=== PATIENT | female | born 1985 | race African-American/Black ===

== ENCOUNTER → 2016-08-08 | Outpatient (CLI) | payer OTHER ==
[2015-11-03 10:00] VITALS: BP 110/80
[~2016-08-08] MED LIST: GADOBUTROL 7.5 MMOL/7.5 ML VIAL INT ART ONE; IBUP200T43 PO; IOHEXOL 300 MG/ML 50 ML VIAL. INT ART ONE; LIDOCAINE 1% Multi-Dose 20 ML VIAL. ID ONE
--- NOTE | 2016-08-08 16:13 | KCIC ---
PROCEDURE Lefthip injection using fluoroscopic guidance, prior to MR. HISTORY Hip pain. History of prior labral repair. TECHNIQUE The procedure was explained to the patient as were potential risks. All questions were answered. Informed written consent was obtained. The hip was prepped and draped in the usual sterile manner. Following administration of local anesthetic with 1% lidocaine , a 22-gauge spinal needle was advanced into the hip. Stylet was removed and following negative aspiration,15 cc of a solution of 5cc Omnipaque-300 contrast, 5 cc 1% lidocaine, 10 cc saline, and 0.1 cc gadolinium was injected without difficulty. The needle was removed. There was good hemostasis at the injection site. The patient left in stable condition without immediate complication. The patient was given postprocedural instructions, and instructed to contact us or the ER if there are any complications. COMPARISON None FINDINGS Single fluoroscopic image shows needle tip projected to the lateral femoral head/neck junction. Contrast material fills the joint space. 1 minutes 9 seconds fluoroscopic time used. One image. IMPRESSION Fluoroscopic guided left hip injection for MRI. Electronically signed by: Ganesh Riojas (Aug 08, 2016 16:12:06)
--- NOTE | 2016-08-08 16:48 | KCIC ---
PROCEDURE MRI arthrogram left hip dated 08/08/2016. HISTORY History prior labral repair with persistent left hip pain. TECHNIQUE Routine MR arthrogram left hip performed. COMPARISON None. FINDINGS Adequate distention of the joint space with contrast material. Evidence of prior labral repair with areas of susceptibility artifact along the superior posterior labrum. There is irregular morphology of the posterior superior labrum without discrete contrast communicating defect. No labral displacement. No perilabral cyst. Linear cleft of contrast extends to the labral cartilaginous interface at the superior labrum 12 o'clock. This extends for a short segment. No full-thickness cartilage defect. There is mild hypertrophic change of the left hip joint. No intra-articular loose body. Gluteus minimus and gluteus medius tendons are intact. Hamstring tendon complex is intact. Iliopsoas is intact. Limited imaged portions of the pelvis are unremarkable. Increased signal within the rectus femoris and iliopsoas muscles, likely related to joint injection. IMPRESSION - Evidence of prior posterior superior labral repair. There is some irregularity and ill definition of the posterior superior labrum that is likely related to prior tear at and/or postsurgical change. Small cleft at the labral cartilaginous interface near the 12 o'clock position may represent a normal sulcus or postoperative defect, although a small recurrent tear cannot be excluded. Recommend comparison to prior imaging studies to assess for interval change. - Otherwise no significant bony or soft tissue abnormality. Electronically signed by: Ganesh Riojas (Aug 08, 2016 16:47:56)
== END | disposition home or self-care (01) ==
LOC: KCIC 15:02
PROVIDERS: ATTEND Physician Assistant
DX: M25.552 Pain in left hip (principal)
CPT/HCPCS: 73525; 73722; Q9967; A9585